=== PATIENT | male | born 1980 | race African-American/Black ===

== ENCOUNTER 2016-12-06 11:09 | Outpatient (CLI) | payer OTHER ==
[2016-12-06 11:36] LABS: Bilirubin Negative (Negative); Blood, Urine Trace (Negative); Glucose, Urine (Dipstick) Negative (Negative); Ketone, Urine Negative (Negative); Nitrite Negative (Negative); Protein, Urine (Dipstick) 30 mg/dL (Neg-Trace); Urobilinogen 0.2 mg/dL (0.2-1.0)
[2016-12-06 11:53] LABS: PTT 25.1 SEC (22.9-36.1); Prothrombin Time 13.2 SEC (12.0-14.7)
[2016-12-06 12:02] LABS: ALT (SGPT) 102 U/L (0-55); AST (SGOT) 241 U/L (5-34); Alkaline Phosphatase 93 U/L (40-150); Anion Gap 12 mmol/L (10-20); BUN (Urea Nitrogen) 6 mg/dL (8.9-20.6); Bilirubin, Total 0.6 mg/dL (0.2-1.2); Calc. Creatinine Clearance 0 mL/min (70-130); Calcium 9.5 mg/dL (7.8-10.44); Carbon Dioxide 30 mmol/L (22-29); Chloride 103 mmol/L (98-107); Estimated GFR-MDRD 82; Globulin 3.7 g/dL (2.4-3.5); Protein, Total 7.9 g/dL (6.0-8.3)
[2016-12-06 12:16] LABS: Bacteria/HPF 1+ HPF (None Seen); RBC/HPF 0-3 HPF (0-3); Squamous Epithelial 0-3 HPF (0-3); WBC/HPF 0-3 HPF (0-3)
[2016-12-06 12:20] LABS: #Basophils 0.1 thou/uL (0.0-0.2); #Eosinphils 0.4 thou/uL (0.0-0.7); #Lymphocytes 2.5 thou/uL (1.20-3.40); #Monocytes 0.6 thou/uL (0.11-0.59); #Neutrophils 5.1 thou/uL (1.40-6.50); %Basophils 1.5 % (0.0-1.0); %Eosinophils 4.6 % (0.0-10.0); %Monocytes 7.3 % (0.0-10.0); Hematocrit 50.1 % (42.0-52.0); Mean Platelet Volume 7.9 fL (7.4-10.4); Red Blood Cell (RBC) Count 5.95 mill/uL (4.70-6.10); White Blood Cell (WBC) Count 8.7 thou/uL (4.8-10.8)
--- NOTE | 2016-12-06 22:34 | RAD ---
CHEST TWO VIEWS 12/06/16 No prior films were available for comparison. The heart is normal in size. The lungs are fully inflated and clear. No infiltrate or other sign of pneumonia was found. There are no effusions. The mediastinum was unremarkable in appearance. The tra deena is midline. IMPRESSION: No acute thoracic finding. POS: HOME
== END 2016-12-06 11:10 | disposition home or self-care (01) ==
LOC: BURRAD 11:09
PROVIDERS: ATTEND Family Medicine
DX: J40 Bronchitis, not specified as acute or chronic (principal); R04.2 Hemoptysis; R82.90 Unspecified abnormal findings in urine
CPT/HCPCS: 36415; 71020; 80053; 81001; 85025; 85610; 85730; 87086

== ENCOUNTER 2016-12-11 11:53 | Outpatient (CLI) | payer OTHER ==
[2016-12-11 16:53] LABS: ALT (SGPT) 100 U/L (0-55); AST (SGOT) 89 U/L (5-34); Alkaline Phosphatase 97 U/L (40-150); Anion Gap 12 mmol/L (10-20); BUN (Urea Nitrogen) 9 mg/dL (8.9-20.6); Bilirubin, Total 0.3 mg/dL (0.2-1.2); Calc. Creatinine Clearance 0 mL/min (70-130); Calcium 9.4 mg/dL (7.8-10.44); Carbon Dioxide 29 mmol/L (22-29); Chloride 104 mmol/L (98-107); Estimated GFR-MDRD 88; Globulin 3.3 g/dL (2.4-3.5); Protein, Total 7.6 g/dL (6.0-8.3)
[2016-12-11 17:11] LABS: Hematocrit 51.6 % (42.0-52.0); Mean Platelet Volume 8.3 fL (7.4-10.4); Neutrophil 62 % (42-75); Red Blood Cell (RBC) Count 6.05 mill/uL (4.70-6.10); White Blood Cell (WBC) Count 8.1 thou/uL (4.8-10.8)
== END 2016-12-11 11:54 | disposition home or self-care (01) ==
LOC: LABLEX 11:53
PROVIDERS: ATTEND Family Medicine
DX: R74.8 Abnormal levels of other serum enzymes (principal)
CPT/HCPCS: 80053; 80074; 85025

== ENCOUNTER 2016-12-25 09:45 | Outpatient (CLI) | payer OTHER ==
[2016-12-25 16:43] LABS: ALT (SGPT) 46 U/L (0-55); AST (SGOT) 40 U/L (5-34); Albumin 4.3 g/dL (3.5-5.0); Alkaline Phosphatase 97 U/L (40-150); Bilirubin, Direct 0.2 mg/dL (0.1-0.3); Bilirubin, Total 0.4 mg/dL (0.2-1.2); Protein, Total 7.5 g/dL (6.0-8.3)
== END 2016-12-25 09:46 | disposition home or self-care (01) ==
LOC: LABLEX 09:45
PROVIDERS: ATTEND Family Medicine
DX: R74.8 Abnormal levels of other serum enzymes (principal)
CPT/HCPCS: 80076